=== PATIENT | female | born 1965 | race African-American/Black ===

== ENCOUNTER → 2021-07-24 | Outpatient (CLI) | payer OTHER | END | disposition home or self-care (01) | LOC: RADPV 08:17 | PROVIDERS: ATTEND Legal Medicine | DX: M48.061 Spinal stenosis, lumbar region without neurogenic claudication (principal); M47.814 Spondylosis without myelopathy or radiculopathy, thoracic region; M51.34 Other intervertebral disc degeneration, thoracic region; M47.812 Spondylosis without myelopathy or radiculopathy, cervical region; M50.30 Other cervical disc degeneration, unspecified cervical region; M25.78 Osteophyte, vertebrae; M54.50 Low back pain, unspecified; I50.1 Left ventricular failure, unspecified; M25.50 Pain in unspecified joint; J45.909 Unspecified asthma, uncomplicated | CPT/HCPCS: 71046; 72040; 72070; 72100; 93306 ==